=== PATIENT | male | born 1965 | race Hispanic/Latino ===

== ENCOUNTER → 2017-12-23 | Outpatient (CLI) | payer OTHER ==
--- NOTE | 2017-12-23 16:24 | Diagnostic Imaging Report ---
EXAM: Thyroid Ultrasound INDICATION: \S\THYROID NODULE COMPARISON: Thyroid ultrasound 04/28/2017 TECHNIQUE: Transverse and sagittal images were obtained of the thyroid gland. FINDINGS: Thyroid gland: Size: Right lobe: 3.2 x 1.7 x 1.3 cm, Normal in size Left lobe: 3.7 x 1.3 x 1.6 cm, Normal in size Isthmus: 0.6 cm, Normal in size Appearance: Homogeneous echotexture without increased vascularity Masses/Nodules: Right lobe: 0.6 x 0.4 x 0.5 cm solid (2 pts) nodule in the interpolar region with ill-defined margin (0 pts), ehynh-zzmg-avme (0 pts), hypoechoic (2 pts), and no calcifications (0 pts). Previously 0.6 x 0.5 x 0.5 cm. TR4a (<1.0 cm): No follow-up. Isthmus: 0.9 x 0.8 x 1.0 cm solid (2 pts) nodule in the inferior with lobulated margin (2 pts), pawwg-tzgv-bwem (0 pts), hypoechoic (2 pts), and no calcifications (0 pts). Previously 1.2 x 0.9 x 1.1 cm and isoechoic TR4a (<1.0 cm): No follow-up. Parathyroid: No focal parathyroid masses. IMPRESSION: Multinodular thyroid: Indeterminant nodules. Recommend follow-up ultrasound at the intervals described above. Slightly decreased size of 1.0 cm left isthmus nodule. However, interval change in characteristics now more hypoechoic with lobulated margins. Recommend one-year follow-up. TI-RADS Lexicon: TR1, Benign: No FNA TR2, Not Suspicious: No FNA. TR3a (<1.5 cm): No follow-up. TR3b (1.5-2.5 cm), Mildly Suspicious: Follow at 1, 3, 5 years. TR3c (>2.5 cm), Mildly Suspicious: FNA. TR4a (<1.0 cm): No follow-up. TR4b (1.0-1.5 cm), Moderately Suspicious: Follow at 1, 2, 3, 5 years. TR4c (>1.5 cm), Moderately Suspicious: FNA. TR5a (<0.5 cm): No follow-up. TR5b (0.5-1.0 cm), Highly Suspicious: Follow at 1, 2, 3, 4, 5 years. TR5c (>1.0 cm), Highly Suspicious: FNA. *Rebiopsy if new suspicious features *No recommendation at this time for significant interval growth. Nodule Characteristics: * Benign features: cystic, hyperechoic, comet-tail artifact, complete halo * Minor suspicious features: solid, hypoechoic, other calcifications * Major suspicious features: microcalcifications, marked hypoechoic (less than strap muscle), suspicious lymph nodes, taller than wide, lobulated or ill-defined margins. Literature: ACR Thyroid Imaging, Reporting and Data System (TI-RADS): White Paper of the ACR TI-RADS Committee. J Am Lorena Radiol 2017. Signed by: Dr. Jeff Ybarra M.D. on 12/23/2017 4:21 PM
== END ==
LOC: US 13:46
PROVIDERS: ATTEND Family Medicine
DX: E04.1 Nontoxic single thyroid nodule (principal)
CPT/HCPCS: 76536

== ENCOUNTER → 2021-05-17 | Outpatient (CLI) | payer OTHER | LOC: US 15:09 | PROVIDERS: ATTEND Family Medicine | DX: E04.2 Nontoxic multinodular goiter (principal) | CPT/HCPCS: 76536 ==